=== PATIENT | female | born 1970 | race Caucasian/White ===

== ENCOUNTER 2024-02-11 11:51 | Inpatient (IN) ==
[2024-02-11] MEDS: Lactated Ringers 1000 ml BAG 1,000 ML IV ONE (12:16)
[2024-02-11] MEDS: Ondansetron 4 mg VIAL 2 MG/ML 2 ml VIAL IV ONE (12:17)
[2024-02-11] MEDS: fentaNYL 100 mcg/2 ml 50 MCG/ML VIAL IV SLOW PU ONE (12:19)
[2024-02-11 12:50] LABS: ABS Basophils 0.1 10^3/uL (0.0-0.1); ABS Lymphocytes 1.5 10^3/uL (1.0-4.8); ABS Monocytes 0.7 10^3/uL (0.0-0.9); ABS Neutrophils 10.2 10^3/uL (1.5-7.6); Eosinophil % 0.4 %; Hematocrit 36.6 % (35-45); Hemoglobin 12.1 g/dL (11.5-14.3); Lymphocyte % 12.2 %; Mean Corpuscular Hemoglobin 25.7 pg (27-33); Mean Corpuscular Volume 77.6 fL (80-97); Platelet Count 454 10^3/uL (150-450); Red Blood Count 4.71 10^6/uL (3.63-4.92); White Blood Count 12.6 10^3/uL (3.8-11.8)
[2024-02-11] MEDS: Haloperidol 5 mg/ml SDV IV/IM 5 MG/ML AMP IV SLOW PU ONE (13:16)
[2024-02-11 13:41] LABS: ALT 15 U/L (7-52); AST 20 U/L (13-39); Albumin 4.7 g/dL (3.2-5.2); Albumin/Globulin Ratio 1.7 (1-3); Alkaline Phosphatase 166 U/L (35-149); Anion Gap 15 mmol/L (2-16); Blood Urea Nitrogen 15 mg/dL (6-24); C Reactive Protein < 1.00 mg/L (<8.01); CO2 Carbon Dioxide 21 mmol/L (22-32); Chloride 99 mmol/L (101-111); Globulin 2.8 g/dL (2-4); Glucose 123 mg/dL (70-100); Lipase 26 U/L (11.0-82.0); Sodium 135 mmol/L (135-145); Total Bilirubin 0.4 mg/dL (0.2-1.0); Total Protein 7.5 g/dL (6.4-8.9)
[2024-02-11] MEDS: Morphine 4 MG/ML VIAL (1 ml) IV ONE ×3 (15:06→19:22)
[2024-02-11] MEDS: Haloperidol 5 mg/ml SDV IV/IM 5 MG/ML AMP IV SLOW PU PRN (15:33)
[2024-02-11] MEDS: Iohexol 300 (CONTRAST) 10 ML SDV IV ONE (15:37)
[2024-02-11 16:12] LABS: Urine Appearance Clear; Urine Bilirubin Negative (Negative); Urine Blood Negative (Negative); Urine Color Yellow; Urine Glucose Negative (Negative); Urine Ketones 2+ (Negative); Urine Nitrite Negative (Negative); Urine Protein Trace (Negative); Urine Specific Gravity 1.027 (1.002-1.030); Urine Urobilinogen Negative (Negative)
[2024-02-11 16:14] LABS: Urine Bacteria Absent /HPF (Absent); Urine Red Blood Cell 1+(3-5/hpf) /HPF (0-Trace); Urine Squamous Epithelial Cell Present /HPF (Absent); Urine White Blood Cell Trace(0-5/hpf) /HPF (0-Trace)
[2024-02-11] MEDS ORDERED: ceFAZolin 2 GM PREMIX 2 GM/50 ML BAG ONE (20:07)
[2024-02-11] MEDS ORDERED: Famotidine IV 10 MG/ML 2 ml VIAL (20 mg) ONE (20:07)
[2024-02-11] MEDS ORDERED: Dexamethasone IV 4 MG/ML VIAL 1 ml VIAL ONE (20:07)
[2024-02-11] MEDS ORDERED: Sodium Citrate/Citric Acid LIQ 15 ML UDC ONE (20:07)
[2024-02-11] MEDS ORDERED: fentaNYL 100 mcg/2 ml 50 MCG/ML VIAL ONE ×2 (20:08→21:51)
[2024-02-11] MEDS ORDERED: Midazolam 2 mg/2 ml VIAL 1 mg/ml 2 ml VIAL (2 mg) ONE (20:08)
[2024-02-11] MEDS ORDERED: Succinylcholine 200 mg VIAL 20 mg/ml 10 ml VIAL (200 mg) ONE (20:08)
[2024-02-11] MEDS ORDERED: Lidocaine 2% PF 5 ML VIAL ONE (20:09)
[2024-02-11] MEDS: Sodium Citrate/Citric Acid LIQ 15 ML UDC PO ONE (20:28)
[2024-02-11] MEDS: Dexamethasone IV 4 MG/ML VIAL 1 ml VIAL IV SLOW PU ONE (20:28)
[2024-02-11] MEDS: Famotidine IV 10 MG/ML 2 ml VIAL (20 mg) IV ONE (20:28)
[2024-02-11] MEDS: Lactated Ringers 1000 ml BAG 1,000 ML IV SCH (20:29)
[2024-02-11] MEDS ORDERED: HYDROmorphone 0.5 MG/0.5 ML SYRINGE ONE (21:17)
[2024-02-11] MEDS ORDERED: Phenylephrine 40 mcg/mL 10mL (400mcg) SYRINGE ONE (22:40)
[2024-02-11] MEDS ORDERED: Ondansetron 4 mg VIAL 2 MG/ML 2 ml VIAL ONE (23:49)
[2024-02-12] MEDS ORDERED: Ondansetron 4 mg VIAL 2 MG/ML 2 ml VIAL IV PRN (00:40)
[2024-02-12] MEDS ORDERED: HYDROmorphone 1 MG/1 ML SYRINGE IV PRN (00:50)
[2024-02-12] MEDS ORDERED: Naloxone 0.4 mg VIAL 0.4 mg/ml 1 ml VIAL IV PRN (00:50)
[2024-02-12] MEDS: fentaNYL 100 mcg/2 ml 50 MCG/ML VIAL IV PRN (01:00)
[2024-02-12] MEDS ORDERED: fentaNYL 100 mcg/2 ml 50 MCG/ML VIAL ONE (01:08)
[2024-02-12] MEDS: Buffered Lidocaine 1% SYRIN 1 ml INTRADERM ONE (03:11)
[2024-02-12] MEDS: Acetaminophen IV 1 GM/100ML 1,000 MG/100 ML BAG IV PRN (03:12)
[2024-02-12] MEDS: NS 0.9% 1,000 ML IV SCH (03:12)
[2024-02-12] MEDS: Piperacillin/Tazobac 3.375 BAG 3.375 GM/100 ML BAG IV ONE (04:26)
[2024-02-12] MEDS: HYDROmorphone 0.5 MG/0.5 ML SYRINGE IV SLOW PU PRN (07:47)
[2024-02-12 08:03] LABS: ABS Monocytes 1.5 10^3/uL (0.0-0.9); ABS Neutrophils 19.6 10^3/uL (1.5-7.6); Hematocrit 34.8 % (35-45); Hemoglobin 11.3 g/dL (11.5-14.3); Lymphocyte % 4.6 %; Mean Corpuscular Hemoglobin 25.6 pg (27-33); Mean Corpuscular Hgb Conc 32.6 g/dL (31-36); Mean Corpuscular Volume 78.7 fL (80-97); Mean Platelet Volume 7.2 fL (7.5-11.2); Platelet Count 384 10^3/uL (150-450); Red Blood Count 4.42 10^6/uL (3.63-4.92); Red Cell Distribution Width 15.2 % (12-17); White Blood Count 22.1 10^3/uL (3.8-11.8)
[2024-02-12 08:36] LABS: Creatinine, Serum 0.74 mg/dL (0.51-0.95); Potassium 4.6 mmol/L (3.5-5.0); eGFR CKD-EPI 96.1 (>60)
[2024-02-12] MEDS: DULoxetine DR 60 mg CAP PO SCH (09:16)
[2024-02-12] MEDS: Piperacillin/Tazobac 3.375 BAG 3.375 GM/100 ML BAG IV SCH (09:16)
[2024-02-12] MEDS: Fluticasone NASAL SPRAY 50MCG 16 gm SPRAY BTL INTRANASAL SCH (09:17)
[2024-02-12 12:46] LABS: Magnesium 1.7 mg/dL (1.9-2.7)
[2024-02-12] MEDS: Magnesium Sulfate 2 gm BAG 2 GM/50 ML BAG IVPB ONE (15:50)
[2024-02-13 06:30] LABS: ABS Eosinophils 0.1 10^3/uL (0.0-0.5); ABS Lymphocytes 1.1 10^3/uL (1.0-4.8); ABS Monocytes 1.1 10^3/uL (0.0-0.9); ABS Neutrophils 8.9 10^3/uL (1.5-7.6); Eosinophil % 0.7 %; Hematocrit 28.4 % (35-45); Hemoglobin 9.3 g/dL (11.5-14.3); Lymphocyte % 9.9 %; Mean Corpuscular Hemoglobin 25.7 pg (27-33); Mean Corpuscular Hgb Conc 32.7 g/dL (31-36); Mean Corpuscular Volume 78.5 fL (80-97); Mean Platelet Volume 7.2 fL (7.5-11.2); Platelet Count 283 10^3/uL (150-450); Red Blood Count 3.62 10^6/uL (3.63-4.92); Red Cell Distribution Width 15.2 % (12-17); White Blood Count 11.2 10^3/uL (3.8-11.8)
[2024-02-13 06:47] LABS: Calcium 7.7 mg/dL (8.6-10.3); Creatinine, Serum 0.65 mg/dL (0.51-0.95); Potassium 3.9 mmol/L (3.5-5.0); eGFR CKD-EPI 104.6 (>60)
[2024-02-14 06:21] LABS: ABS Eosinophils 0.1 10^3/uL (0.0-0.5); ABS Lymphocytes 1.4 10^3/uL (1.0-4.8); ABS Neutrophils 6.8 10^3/uL (1.5-7.6); Eosinophil % 0.6 %; Hemoglobin 9.6 g/dL (11.5-14.3); Lymphocyte % 14.9 %; Mean Corpuscular Volume 78.7 fL (80-97); Platelet Count 246 10^3/uL (150-450); Red Blood Count 3.68 10^6/uL (3.63-4.92); Red Cell Distribution Width 15.3 % (12-17); White Blood Count 9.3 10^3/uL (3.8-11.8)
[2024-02-14 17:20] VITALS: BP 107/54
== END 2024-02-14 18:00 | disposition home or self-care (01) | DRG 329 ==
LOC: ED 11:51 → EDHOLD 11:51 → AA 19:34 → SSU 02-12 02:11
PROVIDERS: ADMIT Surgery Surgical Critical Care; ATTEND Surgery Surgical Critical Care